=== PATIENT | female | born 1945 | race Caucasian/White ===

== ENCOUNTER → 2016-11-02 16:53 | Outpatient (CLI) | payer MEDICARE, OTHER | END | disposition home or self-care (01) | LOC: D.MAMMO 14:30 | DX: Z12.31 Encounter for screening mammogram for malignant neoplasm of breast (principal) ==

== ENCOUNTER → 2017-11-05 13:56 | Outpatient (CLI) | payer MEDICARE, OTHER ==
[2017-11-05 16:09] LABS: T4 THYROXIN - FREE 0.8 ng/dL (0.76-1.46); THYROID STIMULATING HORMONE 2.97 uIU/mL (0.36-3.74)
== END | disposition home or self-care (01) ==
LOC: D.LABREF 13:56
PROVIDERS: Internal Medicine Interventional Cardiology
DX: R00.8 Other abnormalities of heart beat (principal)

== ENCOUNTER → 2019-01-05 09:34 | Outpatient (CLI) | payer MEDICARE | END | disposition home or self-care (01) | LOC: D.US 09:34 | PROVIDERS: ATTEND Surgery | DX: I83.893 Varicose veins of bilateral lower extremities with other complications (principal) ==

== ENCOUNTER 2019-01-09 08:00 | Outpatient (CLI) | payer MEDICARE | END 2019-01-09 23:59 | disposition home or self-care (01) | LOC: D.MAMMO 08:00 | PROVIDERS: ATTEND Family Medicine | DX: Z12.31 Encounter for screening mammogram for malignant neoplasm of breast (principal) ==

== ENCOUNTER 2019-03-11 05:26 | Day surgery (SDC) | payer MEDICARE ==
[~2019-03-11] VITALS: Ht 162.6 cm; Wt 56.7 kg
[~2019-03-11 05:26] MED LIST: CALCIUM 250+D T1 TAB PO
[2019-03-11 05:55] LABS: HEMOGLOBIN 13.2 g/dL (12-16); MCH 31.2 pg (26.0-34.0); MCHC 34.7 g/dL (31.0-37.0); MCV 89.8 fL (80.0-100.0); MEAN PLATELET VOLUME 9.2 fL (7.4-10.4); RBC 4.23 10x6/uL (4.00-5.40); RDW 13.9 % (11.5-14.5); WBC 6.6 10x3/uL (4.8-10.8)
[2019-03-11 06:41] VITALS: BP 149/61; Ht 162.6 cm; Wt 56.7 kg
--- NOTE | 2019-03-11 11:00 | NUR ---
1051-REC'D FROM RR. AWAKE AND ALERT WITHOUT COMPLAINTS. VSS. AT BEDSIDE, CL IN EASY REACH. ICE WATER TO ROOM AWAITING ON TRAY FROM DINING
--- NOTE | 2019-03-11 11:18 | NUR ---
1115-FULL LIQUID TRAY TO ROOM. VSS. DENIES COMPLAINTS
--- NOTE | 2019-03-11 18:16 | OP ---
PATIENT NAME: FRANKY CURRIE MEDICAL RECORD: [id number] :45 LOCATION:D.OPS ADMISSION DATE: SURGEON: DAVID KHAN MD DATE OF OPERATION: 03/11/2019 PREOPERATIVE DIAGNOSIS: Symptomatic lower extremity varicosities. POSTOPERATIVE DIAGNOSIS: Symptomatic lower extremity varicosities. PROCEDURE: Left lower extremity avulsion phlebectomies times 20. SURGEON: David Khan MD PICKER FEEDER: None. BLOOD LOSS: Less than 50 cc. ANESTHESIA: General. COMPLICATIONS: None. The risks, possible complications and alternatives to the procedure were explained to the patient. She elects to proceed. The discussion specifically included, but was not limited to, bleeding requiring emergency reoperation, infection, persistent or recurrent varicosities. I told her that she would have some bleeding and would have some bruising. OPERATIVE COURSE: The patient was conveyed to the holding area in the presence of a female nurse. While the patient was standing, the varicosities were marked with a black marker. The patient witnessed that these had been marked and states that all the symptomatic varicosities were marked in the left lower extremity. We specifically discussed that we would only be doing the varicosities involving the left lower extremity. The patient was conveyed the operating room. General anesthesia was induced by the anesthesia staff. Small skin incisions were accomplished. Through the skin incisions, utilizing a phlebectomy hook, avulsion phlebectomies were performed times 20. At no time was there any apparent nerve injury. Sterile dressings were applied. The patient was then extubated and conveyed to post-anesthesia care unit where she was in stable condition. She will be dismissed home with [place] for pain. I will see her in the office on Saturday for dressing removal. TRANSINT:[id number] Voice Confirmation ID: [id number] DOCUMENT ID: [id number] DAVID KHAN MD at 1816 CC: [id number] DICTATION DATE: 03/11/19 1038 MONUMENT MASON: 03/11/19 1113 [facility] 03/11/19 [id number] [place] [address]
== END 2019-03-11 12:05 | disposition home or self-care (01) ==
LOC: D.OPS 05:26 → D.PAN 08:00 → D.OPS 12:05
PROVIDERS: Anesthesiology; ATTEND Surgery
DX: I83.92 Asymptomatic varicose veins of left lower extremity (principal)

== ENCOUNTER 2019-03-11 13:06 | Emergency (ER) | payer MEDICARE ==
[~2019-03-11] VITALS: Ht 162.6 cm; Wt 56.8 kg
[2019-03-11 13:20] VITALS: Ht 162.6 cm; Wt 56.8 kg
[2019-03-11 15:48] VITALS: BP 136/84
== END 2019-03-11 15:49 | disposition home or self-care (01) ==
LOC: D.ER 13:06
DX: L76.22 Postprocedural hemorrhage of skin and subcutaneous tissue following other procedure (principal); Y83.9 Surgical procedure, unspecified as the cause of abnormal reaction of the patient, or of later complication, without mention of misadventure at the time of the procedure